=== PATIENT | male | born 2000 | race Caucasian/White ===

== ENCOUNTER 2022-06-13 00:56 | Emergency (ER) | payer OTHER ==
[2022-06-13] MEDS ORDERED: IBUPROFEN800 MG PO (01:26)
== END 2022-06-13 01:40 | disposition home or self-care (01) ==
LOC: ER1 00:56
DX: S67.02XA Crushing injury of left thumb, initial encounter (principal); S62.522A Displaced fracture of distal phalanx of left thumb, initial encounter for closed fracture; W23.1XXA Caught, crushed, jammed, or pinched between stationary objects, initial encounter
CPT/HCPCS: 73130; 99283